=== PATIENT | male | born 1965 | race Caucasian/White ===

== ENCOUNTER → 2020-04-23 11:51 | Outpatient (CLI) | payer BC, SELFPAY ==
--- NOTE | ~2020-04-23 | XR_ITS ---
XR hip LT min 2V 04/23/2020 12:06 Indication: Left hip pain Procedure: 2 views left hip Comparison: No prior studies for comparison. Findings: No fracture or traumatic malalignment. No significant soft tissue abnormality. No radiopaqu e foreign bodies. Mild osteoarthritis of the left hip. There is sclerosis surrounding the sacroiliac joint superiorly, possibly degenerative. Impression: 1: Mild osteoarthritis of the left hip. Reviewed, dictated and finalized at location B. Impression: 1: Mild osteoarthritis of the left hip.
== END ==
PROVIDERS: PCP Clinical Nurse Specialist; Visit Provider Clinical Nurse Specialist
DX: M25.552 Pain in left hip (principal); M16.12 Unilateral primary osteoarthritis, left hip
CPT/HCPCS: 73502

== ENCOUNTER 2020-12-06 09:38 | Emergency (ER) | payer BC, SELFPAY ==
--- NOTE | ~2020-12-06 | CT_ITS ---
EXAMINATION: CT abdomen pelvis w con EXAM DATE: 12/06/2020 10:43 INDICATION: Left-sided abdominal pain with diarrhea. TECHNIQUE: Spiral CT of the abdomen and pelvis was performed following intravenous injection of 100 m L Omnipaque 350. Axial, coronal and sagittal images of the abdomen and pelvis were reviewed. The do se-length product (DLP) for this examination was 474.63 mGy-cm. The exposure was tailored according to patient size (auto mA exposure control), and iterative reconstruction (ASIR) was used as additiona l dose reduction technique. There is no prior study for comparison. FINDINGS: The liver, spleen, adrenal glands and pancreas are unremarkable. Gallbladder is unremarkab le. No biliary obstruction. Portal and splenic veins are patent. Kidneys enhance symmetrically. T here is no hydronephrosis. The prostate is unremarkable. The bladder is unremarkable. There is no retroperitoneal or pelvic lymphadenopathy. The appendix is normal. There is small to moderate-sized gastroesophageal hiatal hernia. Some surrou nding abdominal fat also herniating through. There is colonic fluid, correlate for diarrhea. No colo kathy wall thickening No free intraperitoneal gas. The heart is normal in size. There are no peric ardial or pleural effusions. The lung bases are unremarkable. There are no osteoblastic or osteolyt ic lesions identified. There is chronic L4 bilateral spondylolysis with moderate to severe loss of th is disc height, and about 7 mm anterolisthesis. Mild to moderate upper lumbar dextroscoliosis. IMPRESSION: 1. Colonic fluid, correlate for diarrhea/enteritis. 2. Small to moderate hiatal hernia. 3. L4 spondylolysis, anterolisthesis. Reviewed, dictated and finalized at location A.
[2020-12-06 09:40] VITALS: BP 95/67; PULSE 95; RESP 18; TEMP 36.4; O2SAT 100
[2020-12-06 10:08] VITALS: BP 113/75; PULSE 89; RESP 16; O2SAT 100
[2020-12-06 10:11] LABS: Basophils Percent Auto 0.1 % (0.2-1.2); Eosinophils Absolute Auto 0.3 K/mm3 (0-0.3); Eosinophils Percent Auto 1.8 % (0-4.4); Hematocrit 48.7 % (42.0-52.0); Hemoglobin 16.7 g/dL (14.0-18.0); Immature Granulocyte Absolute 0.04 K/mm3 (0.00-0.031); Immature Granulocyte Percent A 0.3 % (0-0.5); Lymphocytes Absolute Auto 0.29 K/mm3 (0.9-3.2); Mean Corpuscular HGB Conc 34.3 g/dl (32-36); Mean Corpuscular Hemoglobin 30.5 pg (26-34); Mean Corpuscular Volume 88.9 fl (80-100); Monocytes Absolute Auto 0.3 K/mm3 (0.1-0.6); Monocytes Percent Auto 1.9 % (2.6-8.5); Neutrophils Absolute Auto 13.8 K/mm3 (1.3-6.7); Neutrophils Percent Auto 93.9 % (45.5-73.1); Platelet Count Result 220 k/mm3 (150-375); Red Blood Count 5.48 M/mm3 (4.6-6.20); Red Cell Distribution Width 12.2 % (11.5-14.5); White Blood Count 14.7 K/mm3 (4.5-10.0)
[2020-12-06 10:23] LABS: Lactic Acid Reflex 0.9 mmol/L (0.7-2.1)
--- NOTE | 2020-12-06 10:25 | ED.ABDPAIN ---
HPI - Abdominal Pain General Chief Complaint: Abdominal Pain <CAROLINE Salazar Last Filed: 12/06/20 13:20> Stated Complaint: abd pain, diarrhea <CAROLINE Salazar Last Filed: 12/06/20 13:20> Time Seen by Provider: 12/06/20 09:55 <CAROLINE Salazar Last Filed: 12/06/20 13:20> Source: patient <CAROLINE Salazar Last Filed: 12/06/20 13:20> Mode of arrival: ambulatory <CAROLINE Salazar Last Filed: 12/06/20 13:20> Limitations: no limitations <CAROLINE Salazar Last Filed: 12/06/20 13:20> History of Present Illness HPI narrative: This is a 55-year-old male that presents the emergency department for left-sided abdominal pain since last night. Reports it is aching in nature. Associated with diarrhea and nausea. Denies fever, vomiting, dysuria, or hematuria. <CAROLINE Salazar Last Filed: 12/06/20 13:20> Related Data Home Medications: Home Medications Medication Instructions Recorded Confirmed fexofenadine-pseudoephedrine 1 tablet PO Q12H PRN 06/10/19 01/26/20 [Heather-D 12 Hour] fluticasone propionate 50 1 - 2 spray NASAL DAILY PRN ml 08/23/19 01/26/20 mcg/actuation nasal spray,suspension <CAROLINE Salazar Last Filed: 12/06/20 13:20> Allergies/Adverse Reactions: Allergies Allergy/AdvReac Type Severity Reaction Status Date / Time No Known Allergies Allergy Verified 12/06/20 09:57 <CAROLINE Salazar Last Filed: 12/06/20 13:20> Review of Systems Review of Systems: Narrative: CONSTITUTIONAL: Denies fever GASTROINTESTINAL: Reports abdominal pain, nausea, diarrhea. Denies vomit GENITOURINARY: Denies dysuria or hematuria. <CAROLINE Salazar Last Filed: 12/06/20 13:20> All systems reviewed & are unremarkable except as noted in HPI and below <Rachel Abbott PA-C - Last Filed: 12/06/20 13:20> [facility] Past Medical History Medical History: Medical History (Updated 12/06/20 @ 12:16 by Rachel Abbott PA-C) Abnormal EKG Cancer skin Gastro-esophageal reflux HLD (hyperlipidemia) Skin cancer Spinal stenosis Spondylolisthesis, multiple sites in spine <Rachel Abbott PA-C - Last Filed: 12/06/20 13:20> Surgical History Surgical History: Surgical History (Updated 08/23/19 @ 07:29 by Sherry Henning [facility]) H/O cervical spine surgery History of tonsillectomy and adenoidectomy History of vasectomy reversed <Rachel Abbott PA-C - Last Filed: 12/06/20 13:20> Family History Family History: Family History (Updated 01/26/20 @ 12:59 by Bela Quiles [facility]) Father Heart disease Hypertension Mother Breast cancer Heart disease Hypertension Sibling Lupus H/O heart surgery <Rachel Abbott PA-C - Last Filed: 12/06/20 13:20> Social History Social History: Social History Smoking status: Never smoker Alcohol intake: current Gender identity (if verbalized by the patient): Male <Rachel Abbott PA-C - Last Filed: 12/06/20 13:20> Exam Narrative: Exam Narrative: GENERAL: Well-appearing, well-nourished, and in no acute distress. HEAD: Normocephalic, atraumatic. EYES: EOMI. CHEST: Clear to auscultation. No respiratory distress. No wheezes rales or rhonchi HEART: Regular rate and rhythm. No murmur heard. Normal peripheral pulses. ABDOMEN: Soft, nondistended, normal active bowel sounds. Mild tenderness to palpation throughout the left side of the abdomen, without guarding. No CVA tenderness EXTREMITIES: Normal range of motion. No edema. SKIN: Warm, dry, no rash. NEURO: No focal deficits. Alert and oriented x3. PSYCH: Normal mood and affect <Rachel Abbott PA-C - Last Filed: 12/06/20 13:20> Course Vital Signs Vital signs: Vital Signs Temperature 97.6 F 12/06/20 09:40 Pulse Rate 95 12/06/20 09:40 Respiratory Rate 18 12/06/20 09:40 Blood Pressure 95/67 L 12/06/20 0
[2020-12-06 10:31] LABS: Alanine Aminotransferase 28 U/L (4-50); Albumin Level 4.1 g/dL (3.5-5.1); Alkaline Phosphatase 84 U/L (38-126); Anion Gap 4 mmol/L (8-16); Aspartate Amino Transferase 32 U/L (17-59); Bilirubin,Total 1.3 mg/dL (0.2-1.3); Blood Urea Nitrogen 18 mg/dL (9-20); Calcium 8.6 mg/dL (8.4-10.2); Carbon Dioxide 28 mmol/L (22-30); Chloride 106 mmol/L (98-107); Estimated CRCL calculation 64 ml/min; Estimated Glomerular Filt Rate > 60; Glucose 137 mg/dL (75-110); Lipase 174 U/L (23-300); Potassium 4.4 mmol/L (3.4-5.0); Sodium 138 mmol/L (137-145)
[2020-12-06 10:32] LABS: Add Urine Microscopic? YES; Appearance Urine Cloudy (Clear); Bacteria Urine Trace /hpf; Bilirubin Urine Negative (Negative); Blood Urine Negative (Negative); Color Urine Amber (Yellow); Glucose Urine UA Negative (Negative); Ketones Urine Trace mg/dL (Negative); Leukocyte Esterase Ur Negative LEU/UL (Negative); Mucus Urine Heavy /lpf; Nitrate Urine Negative (Negative); Protein Urine 2+ mg/dL (Negative); RBC Urine 0-2 /hpf (0-2); Specific Grav Ur 1.024 (1.001-1.035); Squamous Epithelial Cell Urine Rare /hpf (Few); Urobilinogen Urine Negative mg/dL (<2.0)
--- NOTE | 2020-12-06 10:36 | PC.NURSE ---
Pt to CT via stretcher at this time.
[2020-12-06] MEDS: ONDANSETRON INJ 4 MG/2 ML VIAL IV PUSH (11:00)
[2020-12-06] MEDS: SODIUM CHLORIDE 0.9% IV 500 ML 999 ML IV CONT (11:00)
[2020-12-06 11:03] VITALS: BP 112/75; PULSE 90; RESP 20; O2SAT 100
[2020-12-06] MEDS: MORPHINE SULFATE (*CRX) 2 MG/ML INJ IV PUSH (13:01)
[2020-12-06 13:03] VITALS: BP 117/81; PULSE 96; RESP 23; O2SAT 98
[2020-12-06 13:40] VITALS: BP 116/81; PULSE 87; RESP 18; O2SAT 96
== END 2020-12-06 13:43 | disposition home or self-care (01) ==
PROVIDERS: Physician Assistant; Emergency Provider General Practice; PCP Internal Medicine
DX: R19.7 Diarrhea, unspecified (principal); K21.9 Gastro-esophageal reflux disease without esophagitis; E78.5 Hyperlipidemia, unspecified; Z85.828 Personal history of other malignant neoplasm of skin; K44.9 Diaphragmatic hernia without obstruction or gangrene; M43.06 Spondylolysis, lumbar region
CPT/HCPCS: 36415; 74177; 80053; 81001; 83605; 83690; 85025; 96365; 96375; 99284; J0131; J2270; J2405; J7040; Q9967

== ENCOUNTER → 2021-08-06 07:31 | Outpatient (CLI) | payer BC, SELFPAY ==
[2021-08-06 18:05] LABS: Influenza Control Positive
[2021-08-07 13:33] LABS: SARS-CoV-2 RNA PCR Negative
== END ==
PROVIDERS: PCP Internal Medicine; Visit Provider Internal Medicine
DX: R09.81 Nasal congestion (principal); R05.9 Cough, unspecified; Z20.822 Contact with and (suspected) exposure to COVID-19
CPT/HCPCS: 87804; C9803; U0003; U0005

== ENCOUNTER 2022-02-06 01:39 | Day surgery (SDC) | payer BC, SELFPAY ==
[2022-01-27 09:37] VITALS: BMI 26.8
[2022-02-06 12:02] VITALS: BP 131/82; PULSE 88; RESP 18; TEMP 36.5; O2SAT 98; BMI 26.1
[2022-02-06] MEDS: LACTATED RINGERS 1,000 ML 150 ML IV CONT (12:05)
--- NOTE | 2022-02-06 12:06 | WPDANESEPPF ---
Anes - Initial Pre Proc Eval Procedure: Operation Date: 02/06/22 13:15 Proposed Procedures p Esophagogastroduodenoscopy - Brian Ramirez MD Date/Time: 02/06/22 12:06 Surgeon: Brian Ramirez MD Pre Op Diagnosis: GERD Patient Data Age: 56 Gender: M Height: 1.73 m Weight: 78 kg Last Vital Signs Temp 36.5 C 02/06/22 12:02 Pulse 88 02/06/22 12:02 Resp 18 02/06/22 12:02 BP 131/82 02/06/22 12:02 Pulse Ox 98 02/06/22 12:02 O2 Del Method Room Air 02/06/22 12:02 Allergies Allergy/AdvReac Type Severity Reaction Status Date / Time No Known Allergies Allergy Verified 02/06/22 12:01 Home Medications Medication Instructions Recorded Confirmed Type budesonide 0.25 mg/2 mL suspension 0.25 mg (2 mL) irrigation BID #60 01/17/21 01/27/22 Rx for nebulization mL montelukast 10 mg tablet 10 mg PO DAILY #90 tabs 09/16/21 01/27/22 Rx omeprazole 40 mg capsule,delayed 40 mg PO DAILY #90 caps 10/10/21 01/27/22 Rx release atorvastatin 10 mg tablet 10 mg PO DAILY #90 tabs 11/13/21 01/27/22 Rx Patient hx anesthesia problems: none Family hx anesthesia problems: none Results Review: All pre-operative results and documents have been reviewed as part of the pre-operative evaluation. [facility] Past Medical History Medical History Abnormal EKG Cancer skin Gastro-esophageal reflux Hiatal hernia HLD (hyperlipidemia) Skin cancer Spinal stenosis Spondylolisthesis, multiple sites in spine Surgical History Surgical History H/O cervical spine surgery History of tonsillectomy and adenoidectomy History of vasectomy reversed Family History Family History Father Heart disease Hypertension Mother Breast cancer Heart disease Hypertension Sibling Lupus H/O heart surgery Hypertension Social History Social History Smoking status: Light tobacco smoker Tobacco type: cigars Additional smoking assessment comments: occasional cigar; 3 per year Alcohol intake: current Drinks per week: 5 Alcohol use details: one drink most nights Substance use: never Substance use type: does not use Living arrangements: with family Additional living arrangements comments: 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 Informed Consent: The patient's anesthetic plan and its attendant risks and benefits were discussed with the patient/family/POA. Questions were solicited and answers provided to the satisfaction of the patient/family/POA.
--- NOTE | 2022-02-06 12:45 | PM.HPGS ---
History of Present Illness History of Present Illness Consent: Risks, benefits, and alternatives have been discussed and questions answered. Patient agrees to proceed with procedure. Chief complaint: GERD Narrative: Lenin Andujar is a 56 year old male who has been on omeprazole 40 mg daily for 12-15 years.? He states without this medication he will have nocturnal awakening of acid bile.? He does have dysphagia every 3-4 months with long goods drier foods but denies any dysphagia with liquids.? He denies any nausea, vomiting, odynophagia, early satiety, bloating, abdominal pain, change in bowel habits, constipation, diarrhea, melena or hematochezia.? Denies any abnormal weight loss.? Never had an EGD. 12/06/2020 noted a small to moderate hiatal hernia.? Review of Systems Review of Systems: All systems reviewed & are unremarkable except as noted in HPI and below PMFSH Past Medical History Medical History Abnormal EKG Cancer skin Gastro-esophageal reflux Hiatal hernia HLD (hyperlipidemia) Skin cancer Spinal stenosis Spondylolisthesis, multiple sites in spine Surgical History Surgical History H/O cervical spine surgery History of tonsillectomy and adenoidectomy History of vasectomy reversed Family History Family History Father Heart disease Hypertension Mother Breast cancer Heart disease Hypertension Sibling Lupus H/O heart surgery Hypertension Social History Social History Smoking status: Light tobacco smoker Tobacco type: cigars Additional smoking assessment comments: occasional cigar; 3 per year Alcohol intake: current Drinks per week: 5 Alcohol use details: one drink most nights Substance use: never Substance use type: does not use Living arrangements: with family Additional living arrangements comments: 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 Gender identity (if verbalized by the patient): Male Spiritual care concerns: No Meds Home Medications and Allergies Home Medications Medication Instructions Recorded Confirmed Type budesonide 0.25 mg/2 mL suspension 0.25 mg (2 mL) irrigation BID #60 06/10/21 06/20/22 Rx for nebulization mL montelukast 10 mg tablet 10 mg PO DAILY #90 tabs 09/16/21 01/27/22 Rx omeprazole 40 mg capsule,delayed 40 mg PO DAILY #90 caps 10/10/21 01/27/22 Rx release atorvastatin 10 mg tablet 10 mg PO DAILY #90 tabs 11/13/21 01/27/22 Rx Allergies Allergy/AdvReac Type Severity Reaction Status Date / Time No Known Allergies Allergy Verified 02/06/22 12:01 Vital Signs Vital Signs - 24 hr 02/06/22 12:02 Temperature 36.5 C Pulse Rate 88 Respiratory Rate 18 Blood Pressure 131/82 Pulse Oximetry 98 Oxygen Delivery Room Air Exam Const: General: alert Orientation/consciousness: patient oriented x3 Resp: Auscultation: clear to auscultation bilaterally Cardio: Rhythm: regular rhythm GI: GI Palp: Yes Soft to palpation and No Tenderness to palpation present (GI) Neuro: General: patient oriented x3 Assessment and Plan Assessment and plan (1) Gastro-esophageal reflux: Qualifiers: Esophagitis presence: esophagitis presence not specified Qualified Code(s): K21.9 - Gastro-esophageal reflux disease without esophagitis Code(s): K21.9 - Gastro-esophageal reflux disease without esophagitis Status: Acute Assessment and Plan: EGD with possible biopsy or dilatation or cautery.
[2022-02-06 13:11] VITALS: BP 105/70; PULSE 77; RESP 17; O2SAT 100
[2022-02-06 13:21] VITALS: BP 117/69; PULSE 76; RESP 16; O2SAT 99
[2022-02-06 13:31] VITALS: BP 131/75; PULSE 72; RESP 19; O2SAT 100
== END 2022-02-06 13:46 | disposition home or self-care (01) ==
PROVIDERS: PCP Internal Medicine; Visit Provider Internal Medicine Gastroenterology
PROC: 0DJ08ZZ Inspection of Upper Intestinal Tract, Via Natural or Artificial Opening Endoscopic (ICD-10-PCS; CPT 43235; principal; 2022-02-06 13:15)
DX: R13.12 Dysphagia, oropharyngeal phase (principal); K21.00 Gastro-esophageal reflux disease with esophagitis, without bleeding; K44.9 Diaphragmatic hernia without obstruction or gangrene; E78.5 Hyperlipidemia, unspecified; M48.00 Spinal stenosis, site unspecified; M43.10 Spondylolisthesis, site unspecified; F17.290 Nicotine dependence, other tobacco product, uncomplicated
CPT/HCPCS: 43239; 88305; J2704; J7120

== ENCOUNTER 2022-10-31 08:01 | Outpatient (CLI) | payer BC, SELFPAY | END 2022-10-31 08:02 | disposition home or self-care (01) | LOC: ANHAUDIO 08:02 | PROVIDERS: PCP Internal Medicine; Visit Provider Clinical Nurse Specialist | DX: H90.3 Sensorineural hearing loss, bilateral (principal) | CPT/HCPCS: 92557; 92567 ==